=== PATIENT | female | born 1945 | race Caucasian/White ===

== ENCOUNTER 2019-08-31 12:36 | Emergency (ER) | payer MEDICARE, BC ==
[2019-08-31 12:58] VITALS: BP 140/91; PULSE 77
[2019-08-31] MEDS ORDERED: Lidocaine 1% 10 ML MDV INJECT ONE (12:58)
--- NOTE | 2019-08-31 13:01 | EDM.PDOC ---
ED HPI GENERAL MEDICAL PROBLEM - General Chief Complaint: Laceration Stated Complaint: EYEBROW LAC Time Seen by Provider: 08/31/19 12:46 Source of Information: Reports: Patient History Limitations: Reports: No Limitations - History of Present Illness INITIAL COMMENTS - FREE TEXT/NARRATIVE: Patient is a 73-year-old female who presents with complaints of a laceration above her left eyebrow. She states that she tripped over her "blind dog "in the garage and fell and hit her head on the floor. She denies loss of consciousness, but states that she did feel dizzy afterward. She now has a frontal headache. There is no active bleeding to the area. Denies any previous head injuries. Left Pain Score (Numeric/FACES): 8 - Related Data Allergies Allergy/AdvReac Type Severity Reaction Status Date / Time Fish Containing Products Allergy Anaphylactic Verified 06/09/18 14:07 Shock Penicillins Allergy Anaphylactic Verified 06/09/18 14:07 Shock alcohol AdvReac Vomiting Verified 06/09/18 14:07 codeine AdvReac Vomiting Verified 06/09/18 14:07 morphine AdvReac Vomiting Verified 06/09/18 14:07 Home Meds: Home Meds Lisinopril [Zestril] 10 mg PO DAILY 01/03/15 [History] Albuterol [Proventil Neb Soln] 1 dose NEB QID PRN 06/09/18 [History] Albuterol [Ventolin HFA] 1 - 2 puff INH Q4H PRN 06/09/18 [History] Bismuth Subsalicylate [Bismuth] 262 mg PO QID 06/09/18 [History] Cholecalciferol (Vitamin D3) [Vitamin D3] 1,000 unit PO DAILY 06/09/18 [History] Fluticasone/Salmeterol [Advair 250-50] 1 puff INH BID 06/09/18 [History] Meloxicam [Mobic] 15 mg PO DAILY 06/09/18 [History] Multivitamin [Daily Wolf] 1 tab PO DAILY 06/09/18 [History] Naproxen Na-Diphenhydramin HCl [Aleve Pm Caplet] 1 tab PO BEDTIME 06/09/18 [ History] Omeprazole Magnesium [Prilosec Otc] 20 mg PO DAILY 06/09/18 [History] Oxybutynin 5 mg PO BID 06/09/18 [History] amLODIPine Besylate [Norvasc] 5 mg PO DAILY 06/09/18 [History] atorvaSTATin [Lipitor] 40 mg PO DAILY 06/09/18 [History] Aspirin [Halfprin] 81 mg PO DAILY 08/31/19 [History] Past Medical History HEENT History: Reports: Cataract, Impaired Vision, Other (See Below) Other HEENT History: wears glasses, has dentures Cardiovascular History: Reports: Hypertension, Other (See Below) Other Cardiovascular History: aortic stenosis, hemispheric carotid artery syndrome, ASHD Respiratory History: Reports: Asthma Gastrointestinal History: Reports: GERD, Helicobacter Pylori, Other (See Below) Other Gastrointestinal History: incisional hernia, stomach pain Genitourinary History: Reports: Renal Calculus, Other (See Below) Other Genitourinary History: left breast mass, left adrenal mass PROFESSIONAL ADVISOR History: Reports: None Musculoskeletal History: Reports: Osteoporosis, Other (See Below) Other Musculoskeletal History: fall, left shoulder pain Neurological History: Reports: Headaches, Chronic, Other (See Below) Other Neuro History: dizziness, cerebrovascular small vessel disease Psychiatric History: Reports: Anxiety Endocrine/Metabolic History: Reports: Obesity/BMI 30+ Hematologic History: Reports: None Immunologic History: Reports: None Oncologic (Cancer) History: Reports: None Dermatologic History: Reports: Other (See Below) Other Dermatologic History: ingrown toenail - Past Surgical History Head Surgeries/Procedures: Reports: None HEENT Surgical History: Reports: Cataract Surgery Cardiovascular Surgical History: Reports: None Respiratory Surgical History: Reports: None GI Surgical History: Reports: Appendectomy, Cholecystectomy, Colonoscopy Female Surgical History: Reports: Hysterectomy Endocrine Surgical History: Reports: None Neurological Surgical History: Reports: None Musculoskeletal Surgical History: Reports: Other (See Below) Other Musculoskeletal Surgeries/Procedures:: carpal tunnel release, bilateral total knee replacements, bunionectomy, right rotator cuff repair Oncologic Surgical History: Reports: None Dermatological Surgical History: Reports: None Social & Family History - Tobacco Use Smoking Status *Q: Current Every Day Smoker Years of Tobacco use: 16 Packs/Tins Daily: 0.4 - Caffeine Use Caffeine Use: Reports: Coffee - Recreational Drug Use Recreational Drug Use: No ED ROS GENERAL - Review of Systems Review Of Systems: See Below Constitutional: Reports: No Symptoms HEENT: Reports: No Symptoms Respiratory: Reports: No Symptoms Cardiovascular: Reports: No Symptoms Endocrine: Reports: No Symptoms GI/Abdominal: Reports: No Symptoms : Reports: No Symptoms Musculoskeletal: Reports: No Symptoms Skin: Reports: Other (Laceration above the left eyebrow) Neurological: Reports: Headache Psychiatric: Reports: No Symptoms Hematologic/Lymphatic: Reports: No Symptoms Immunologic: Reports: No Symptoms ED EXAM, SKIN/RASH Exam: See Below Exam Limited By: No Limitations General Appearance: Alert, WD/WN, No Apparent Distress Eye Exam: Bilateral Eye: PERRL Respiratory/Chest: No Respiratory Distress, Lungs Clear, Normal Breath Sounds, No Accessory Muscle Use, Chest Non-Tender Cardiovascular: Normal Peripheral Pulses, Regular Rate, Rhythm, No Edema, No Murmur Neurological: Alert, Oriented, Normal Cognition, No Motor/Sensory Deficits Psychiatric: Normal Affect, Normal Mood Skin: Warm, Dry, Normal Color, No Rash, Other (3 cm laceration above the left eyebrow. Scant bleeding.) ED SKIN PROCEDURES - Laceration/Wound Repair left eyebrow Appearance: Subcutaneous Distal NVT: Neuro & Vascular Intact Anesthetic Type: Local Local Anesthesia - Lidocaine (Xylocaine): 1% Plain Local Anesthetic Volume: 2cc Skin Prep: Chlorhexidine (Hibiciens), Providone-Iodine (Betadine) Exploration/Debridement/Repair: Wound Explored, In a Bloodless Field Closed with: Sutures Lac/Wound length In cm: 3 Suture Size: 6-0 # of Sutures: 7 Suture Type: Nylon Tetanus Status Addressed: Yes (ordered) Complications: No Course - Vital Signs Last Recorded V/S: Last Vital Signs Temp 98.0 F 08/31/19 12:56 Pulse 77 08/31/19 12:56 Resp 20 08/31/19 12:56 BP 140/91 H 08/31/19 12:56 Pulse Ox 94 L 08/31/19 12:56 - Orders/Labs/Meds Orders: Active Orders 24 hr Category Date Time Status Procedure Tray at Bedside [RC] ASDIRECTED Care 08/31/19 13:10 Active Vaccines to be Administered [RC] PER UNIT ROUTINE Care 08/31/19 13:45 Active Meds: Medications Discontinued Medications Generic Name Dose Route Start Last Admin Trade Name Freq PRN Reason Stop Dose Admin Diphtheria/Tetanus/Acell Pertussis 0.5 ml 08/31/19 13:45 08/31/19 14:09 Adacel IM 08/31/19 13:46 0.5 ml .ONCE ONE Administration Lidocaine HCl 10 ml 08/31/19 12:58 08/31/19 14:08 Xylocaine 1% INJECT 08/31/19 12:59 10 ml ONETIME ONE Administration - Re-Assessments/Exams Free Text/Narrative Re-Assessment/Exam: Patient has a 3 cm laceration to her left eyebrow. She did hit her head on the garage floor and has some dizziness and headache post injury. Patient is on aspirin daily. I have ordered a head CT. Will then closed laceration with sutures. She is unsure of when her last tetanus vaccination was, so we will update that today as well. Analgesics were offered for her headache and she declined. 08/31/19 14:[address] was normal. Patient will be discharged home. Discharge instructions as noted. Departure - Departure Time of Disposition: 14:16 Disposition: Home, Self-Care 01 Condition: Fair Clinical Impression: Laceration - Discharge Information *PRESCRIPTION DRUG MONITORING PROGRAM REVIEWED*: No *COPY OF PRESCRIPTION DRUG MONITORING REPORT IN PATIENT RICHARD: No Instructions: Laceration Care, Adult, [id number] Referrals: Jeronimo Briseno Jr, MD [Primary Care Provider] - Forms: ED Department Discharge Additional Instructions: You were seen in the emergency department for a 3 cm laceration to your left eyebrow. The wound was cleansed and closed with 7 sutures. The sutures should stay intact for 5 days. After that time they may be removed at either the [facility] or the [facility]. The wound should be kept clean and dry. Wash with regular soap and water twice daily and then pat dry. If there is a chance that the wound may become contaminated, cover it with a Band-Aid. Otherwise it may be left open to air. Watch for signs of infection including redness, swelling, or purulent drainage. If these should occur please follow-up with your primary care provider or return to the emergency department. Sepsis Event Note - Evaluation Sepsis Screening Result: No Definite Risk - Focused Exam Vital Signs: Vital Signs Temp Pulse Resp BP Pulse Ox 08/31/19 12:56 98.0 F 77 20 140/91 H 94 L Date Exam was Performed: 08/31/19 Time Exam was Performed: 17:58 - My Orders Last 24 Hours: My Active Orders 08/31/19 13:10 Procedure Tray at Bedside [RC] ASDIRECTED 08/31/19 13:45 Vaccines to be Administered [RC] PER UNIT ROUTINE - Assessment/Plan Last 24 Hours: My Active Orders 08/31/19 13:10 Procedure Tray at Bedside [RC] ASDIRECTED 08/31/19 13:45 Vaccines to be Administered [RC] PER UNIT ROUTINE
[2019-08-31] MEDS ORDERED: Diphtheria,Pertussis(Acell),Tetanus Vaccine 0.5 ML Syringe IM ONE (13:45)
--- NOTE | 2019-08-31 14:15 | CT ---
Head CT Technique: Multiple axial sections through the brain were obtained. Intravenous contrast was not utilized. Comparison: Prior head CT study of 02/24/11. Findings: Ventricles along with basal cisterns and sulci over the convexities are mildly prominent. Diffuse diminished density is noted within the periventricular and subcortical white matter compatible with small vessel ischemic demyelination change. No other abnormal parenchymal densities are seen. No evidence of intracranial hemorrhage. No midline shift or mass effect is seen. Bone window settings were reviewed. No acute mastoid sinus findings are seen. No acute paranasal sinus findings are seen. No acute calvarial abnormality is appreciated. Impression: 1. Senescent change as noted above. 2. Nothing acute is appreciated on noncontrast head CT exam. Diagnostic code #1 This report was dictated in [place] Standard Time
== END 2019-08-31 14:23 | disposition home or self-care (01) ==
LOC: JD.ED 12:36
DX: S01.112A Laceration without foreign body of left eyelid and periocular area, initial encounter (principal); I10 Essential (primary) hypertension; J45.909 Unspecified asthma, uncomplicated; K21.9 Gastro-esophageal reflux disease without esophagitis; E66.9 Obesity, unspecified; F17.210 Nicotine dependence, cigarettes, uncomplicated; Z23 Encounter for immunization; Z88.0 Allergy status to penicillin; Z91.013 Allergy to seafood; Z91.048 Other nonmedicinal substance allergy status; Z79.899 Other long term (current) drug therapy; Z79.51 Long term (current) use of inhaled steroids; Z79.82 Long term (current) use of aspirin; Z68.32 Body mass index [BMI] 32.0-32.9, adult; W01.198A Fall on same level from slipping, tripping and stumbling with subsequent striking against other object, initial encounter; Y92.59 Other trade areas as the place of occurrence of the external cause
CPT/HCPCS: 12013; 70450; 90471; 90715; 99283; J2001; 99282

== ENCOUNTER 2021-06-06 20:06 | Emergency (ER) | payer MEDICARE, BC ==
[2021-06-06] MEDS ORDERED: Sodium Chloride 0.9% 10 ML Syringe FLUSH PRN (20:22)
[2021-06-06] MEDS ORDERED: Ondansetron 4 MG/2 ML SDV IVPUSH PRN (20:22)
[2021-06-06 20:29] VITALS: BP 163/76; PULSE 85
--- NOTE | 2021-06-06 21:08 | CT ---
Head CT Technique: Multiple axial sections were obtained through the brain. Intravenous contrast was not utilized. Reconstructed coronal and sagittal images were obtained. Comparison: Prior head CT study of 08/31/19. Findings: Ventricles along with basal cisterns and sulci over the convexities are mildly prominent. Diminished density is noted within the periventricular and subcortical white matter which is compatible with stable small vessel ischemic demyelination change. No other abnormal parenchymal densities are seen. No evidence of intracranial hemorrhage is seen. No midline shift or mass-effect is seen. Bone window settings were reviewed. Mucosal thickening is noted within the ethmoid and frontal sinuses. Mastoid sinuses show nothing acute. There is mild atherosclerotic change within the carotid siphon. No acute calvarial abnormality is seen. Soft tissue injury is noted within the posterior left frontal scalp. Impression: 1. Soft tissue injury within the scalp. 2. Mild mucosal thickening within the ethmoid sinuses and frontal sinus. 3. Senescent change as noted above. No acute intracranial abnormality is appreciated. Diagnostic code #3
[2021-06-06] MEDS ORDERED: HYDROmorphone 0.5 MG/0.5 ML Syringe IVPUSH ONE ×2 (21:16→23:19)
--- NOTE | 2021-06-06 21:25 | CT ---
CT cervical spine Technique: Multiple axial sections were obtained from above the C1 inferiorly through the upper T4 level. Reconstructed coronal and sagittal images were obtained. Comparison: No prior cervical spine imaging is available. Findings: Multiple bony densities are seen around the anterior C1 arch. These are felt to be due to degenerative change. Joint space narrowing is also noted at C1-2. Mild degenerative change is also noted between C1 and the occipital condyles. Moderate disc space is narrowing is seen at C4-5 as well as moderate to severe disc space narrowing at C5-6. Moderate disc space narrowing is noted at C6-7 and mild disc space narrowing at C7-T1. Moderate disc space narrowing is noted T2-3 and T3-4. Scattered degenerative apophyseal change is noted. Bone island is noted within the C2 level on the right side. C3-4: Moderate bilateral neural foraminal stenosis is noted. Diffuse posterior disc bulge is seen with mild calcification. C4-5: Moderate bilateral neural foraminal stenosis is noted. Diffuse posterior disc bulge is seen. C5-6: Mild right-sided neural foraminal stenosis is noted. Mild diffuse posterior disc bulge is noted. C6-7: Neural foramina are patent. Diffuse posterior disc bulge is noted. C7-T1: No neural foraminal stenosis is seen. Other levels show no evidence of neural foraminal stenosis. No acute fracture is seen. No abnormal subluxation is seen. Visualized lung bases show nothing acute. Impression: 1. Degenerative change as noted above. 2. No acute fracture or subluxation is seen. Diagnostic code #2
[2021-06-06] MEDS ORDERED: Lidocaine 1% with EPINEPHrine 1:100,000 20 ML MDV INJECT ONE (22:29)
[2021-06-06] MEDS ORDERED: Lidocaine 1% with EPINEPHrine 1:100,000 10 ML MDV ONE (22:34)
[2021-06-06] MEDS ORDERED: Lidocaine 1% with EPINEPHrine 1:100,000 10 ML MDV INJECT ONE ×2 (22:43→22:44)
[2021-06-06] MEDS ORDERED: Acetaminophen 325 MG Tab PO ONE (23:55)
--- NOTE | 2021-06-06 23:58 | EDM.PDOC ---
ED HPI GENERAL MEDICAL PROBLEM - General Chief Complaint: Laceration Stated Complaint: [facility] Time Seen by Provider: 06/06/21 20:17 Source of Information: Reports: Patient, EMS, RN Notes Reviewed - History of Present Illness INITIAL COMMENTS - FREE TEXT/NARRATIVE: 75 yr old female tripped going down some steps. She fell headfirst striking her L forehead and head against some "wooden pallets. She was dazed briefly, no LOC. She has moderate Sawant, feels nauseated, has neck and R knee pain. No chest pain or difficulty breathing. Is reported to be on a "blood thinner" but does not know what that is. This was called a trauma alert based on fall, head injury on blood thinner. Treatments [employer]IVER: Reports: Dressing(s) Left Forehead Pain Score (Numeric/FACES): 10 - Related Data Allergies Allergy/AdvReac Type Severity Reaction Status Date / Time Fish Containing Products Allergy Anaphylactic Verified 06/06/21 20:29 Shock Penicillins Allergy Anaphylactic Verified 06/06/21 20:29 Shock alcohol AdvReac Vomiting Verified 06/06/21 20:29 codeine AdvReac Vomiting Verified 06/06/21 20:29 morphine AdvReac Vomiting Verified 06/06/21 20:29 Home Meds: Home Meds lisinopriL [Zestril] 10 mg PO DAILY 01/03/15 [History] Albuterol [Proventil Neb Soln] 1 dose NEB QID PRN 06/09/18 [History] Albuterol [Ventolin HFA] 1 - 2 puff INH Q4H PRN 06/09/18 [History] Bismuth Subsalicylate [Bismuth] 262 mg PO QID 06/09/18 [History] Cholecalciferol (Vitamin D3) [Vitamin D3] 1,000 unit PO DAILY 06/09/18 [History] Fluticasone/Salmeterol [Advair 250-50] 1 puff INH BID 06/09/18 [History] Meloxicam [Mobic] 15 mg PO DAILY 06/09/18 [History] Multivitamin [Daily Wolf] 1 tab PO DAILY 06/09/18 [History] Naproxen Sod/Diphenhydramine [Aleve Pm Caplet] 1 tab PO BEDTIME 06/09/18 [History] Omeprazole Magnesium [Prilosec Otc] 20 mg PO DAILY 06/09/18 [History] Oxybutynin 5 mg PO BID 06/09/18 [History] amLODIPine Besylate [Norvasc] 5 mg PO DAILY 06/09/18 [History] atorvaSTATin [Lipitor] 40 mg PO DAILY 06/09/18 [History] Aspirin [Halfprin] 81 mg PO DAILY 08/31/19 [History] Hydrocodone/Acetaminophen [HYDROcodone-Acetaminophen 5-325 MG] 1 each PO Q6HR PRN #14 tab 06/06/21 [Rx] Ondansetron [Zofran ODT] 4 mg PO Q8HR PRN #7 tab.dis 06/06/21 [Rx] Past Medical History HEENT History: Reports: Cataract, Impaired Vision, Other (See Below) Other HEENT History: wears glasses, has dentures Cardiovascular History: Reports: Hypertension, Other (See Below) Other Cardiovascular History: aortic stenosis, hemispheric carotid artery syndrome, ASHD Respiratory History: Reports: Asthma Gastrointestinal History: Reports: GERD, Helicobacter Pylori, Other (See Below) Other Gastrointestinal History: incisional hernia, stomach pain Genitourinary History: Reports: Renal Calculus, Other (See Below) Other Genitourinary History: left breast mass, left adrenal mass [employer] 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 Musculoskeletal History: Reports: Osteoporosis, Other (See Below) Other Musculoskeletal History: fall, left shoulder pain Neurological History: Reports: Headaches, Chronic, Other (See Below) Other Neuro History: dizziness, cerebrovascular small vessel disease Psychiatric History: Reports: Anxiety Endocrine/Metabolic History: Reports: Obesity/BMI 30+ Hematologic History: Reports: None Immunologic History: Reports: None Oncologic (Cancer) History: Reports: None Dermatologic History: Reports: Other (See Below) Other Dermatologic History: ingrown toenail - Past Surgical History Head Surgeries/Procedures: Reports: None HEENT Surgical History: Reports: Cataract Surgery Cardiovascular Surgical History: Reports: None Respiratory Surgical History: Reports: None GI Surgical History: Reports: Appendectomy, Cholecystectomy, Colonoscopy Female Surgical History: Reports: Hysterectomy Endocrine Surgical History: Reports: None Neurological Surgical History: Reports: None Musculoskeletal Surgical History: Reports: Other (See Below) Other Musculoskeletal Surgeries/Procedures:: carpal tunnel release, bilateral total knee replacements, bunionectomy, right rotator cuff repair Oncologic Surgical History: Reports: None Dermatological Surgical History: Reports: None Social & Family History - Tobacco Use Tobacco Use Status *Q: Current Every Day Tobacco User Years of Tobacco use: 61 Packs/Tins Daily: 1 - Caffeine Use Caffeine Use: Reports: Coffee - Recreational Drug Use Recreational Drug Use: No ED ROS GENERAL - Review of Systems Review Of Systems: See Below Constitutional: Reports: No Symptoms HEENT: Reports: Other (forehead and scalp contussion and lac) Respiratory: Denies: Shortness of Breath, Pleuritic Chest Pain Cardiovascular: Denies: Chest Pain GI/Abdominal: Reports: Nausea. Denies: Abdominal Pain, Vomiting Musculoskeletal: Reports: Neck Pain, Joint Pain (R knee). Denies: Shoulder Pain, Arm Pain Neurological: Reports: Dizziness, Headache. Denies: Numbness, Tingling, Trouble Speaking ED EXAM, SKIN/RASH Exam: See Below General Appearance: Alert, Moderate Distress Eye Exam: Bilateral Eye: PERRL Ears: Normal External Exam Throat/Mouth: Normal Inspection Head: Other (large 13 cm Lac L forehead and scalp that extends from L eyebrow clear back to L mid superior scalp, deep, gaping) Neck: Tender Midline Respiratory/Chest: No Respiratory Distress, Lungs Clear, Normal Breath Sounds, Chest Non-Tender Cardiovascular: Regular Rate, Rhythm GI/Abdominal: Soft, Non-Tender. No: Guarding Back Exam: No: Vertebral Tenderness Extremities: Other (mild swelling and moderate tenderness R ant. knee) Neurological: Alert, Oriented, No Motor/Sensory Deficits Skin: Dry, Normal Color ED SKIN PROCEDURES - Laceration/Wound Repair Left Forehead Appearance: Linear, Irregular, Other (moderately deep, gaping) Distal NVT: Neuro & Vascular Intact Anesthetic Type: Local Local Anesthesia - Lidocaine (Xylocaine): 1% with EPI Skin Prep: Saline Closed with: Sutures Lac/Wound length In cm: 13 Suture Size: 3-0 Suture Type: Nylon Suture Size: 4-0 # of Sutures: 10 Repaired with: Vicryl Course - Vital Signs Last Recorded V/S: Last Vital Signs Temp 96.6 F L 06/06/21 20:21 Pulse 85 06/06/21 20:21 Resp 16 06/06/21 20:21 BP 163/76 H 06/06/21 20:21 Pulse Ox 95 06/06/21 20:21 - Orders/Labs/Meds Orders: Active Orders 24 hr Category Date Time Status Knee Min 4V Rt [CR] Stat Exams 06/06/21 23:32 Taken Peripheral IV Insertion Adult [OM.PC] Stat Oth 06/06/21 20:22 Ordered Labs: Laboratory Tests 06/06/21 06/06/21 06/06/21 Range/Units 20:25 20:25 20:25 WBC 12.82 H (3.98-10.04) K/mm3 RBC 5.57 H (3.98-5.22) M/mm3 Hgb 16.2 H (11.2-15.7) gm/dl Hct 48.9 H (34.1-44.9) % MCV 87.8 (79.4-94.8) fl MCH 29.1 (25.6-32.2) pg MCHC 33.1 (32.2-35.5) g/dl RDW Std Deviation 50.3 H (36.4-46.3) fL Plt Count 357 (182-369) K/mm3 MPV 9.5 (9.4-12.3) fl Neut % (Auto) 57.0 (34.0-71.1) % Lymph % (Auto) 28.3 (19.3-51.7) % Thayer % (Auto) 8.0 (4.7-12.5) % Eos % (Auto) 6.0 H (0.7-5.8) Baso % (Auto) 0.3 (0.1-1.2) % Neut # (Auto) 7.30 H (1.56-6.13) K/mm3 Lymph # (Auto) 3.63 (1.18-3.74) K/mm3 Thayer # (Auto) 1.03 H (0.24-0.36) K/mm3 Eos # (Auto) 0.77 H (0.04-0.36) K/mm3 Baso # (Auto) 0.04 (0.01-0.08) K/mm3 PT 9.7 (9.7-12.0) SECONDS INR < 0.93 Sodium 140 (136-145) mEq/L Potassium 3.5 (3.5-5.1) mEq/L Chloride 104 (98-107) mEq/L Carbon Dioxide 26 (21-32) mEq/L Anion Gap 13.5 (5-15) BUN 12 (7-18) mg/dL Creatinine 0.8 (0.55-1.02) mg/dL Est Cr Clr Drug Dosing 42.30 mL/min Estimated GFR (MDRD) > 60 (>60) mL/min BUN/Creatinine Ratio 15.0 (14-18) Glucose 163 H (70-99) mg/dL Calcium 9.0 (8.5-10.1) mg/dL Total Bilirubin 0.4 (0.2-1.0) mg/dL AST 23 (15-37) U/L ALT 24 (14-59) U/L Alkaline Phosphatase 91 (46-116) U/L Total Protein 7.7 (6.4-8.2) g/dl Albumin 4.2 (3.4-5.0) g/dl Globulin 3.5 gm/dL Albumin/Globulin Ratio 1.2 (1-2) Meds: Medications Discontinued Medications Generic Name Dose Route Start Last Admin Trade Name Freq PRN Reason Stop Dose Admin Acetaminophen 975 mg 06/06/21 23:55 06/07/21 00:06 Acetaminophen 325 Mg Tab PO 06/06/21 23:56 975 mg NOW ONE Administration Hydromorphone HCl 0.5 mg 06/06/21 21:16 06/06/21 21:36 Hydromorphone 0.5 Mg/0.5 Ml Syringe IVPUSH 06/06/21 21:17 0.5 mg ONETIME ONE Administration Hydromorphone HCl 0.25 mg 06/06/21 23:19 06/06/21 23:39 Hydromorphone 0.5 Mg/0.5 Ml Syringe IVPUSH 06/06/21 23:20 0.25 mg ONETIME ONE Administration Lidocaine/Epinephrine 20 ml 06/06/21 22:29 06/06/21 22:43 Lidocaine 1% With Epinephrine 1:100,000 20 Ml Mdv INJECT 06/06/21 22:30 Not Given ONETIME ONE Lidocaine/Epinephrine Confirm 06/06/21 22:34 06/06/21 22:44 Lidocaine 1% With Epinephrine 1:100,000 10 Ml Mdv Administered 06/06/21 22:35 Not Given Dose 10 ml .ROUTE .STK-MED ONE Lidocaine/Epinephrine 10 ml 06/06/21 22:43 06/06/21 22:45 Lidocaine 1% With Epinephrine 1:100,000 10 Ml Mdv INJECT 06/06/21 22:44 10 ml ONETIME ONE Administration Lidocaine/Epinephrine 10 ml 06/06/21 22:44 06/06/21 22:45 Lidocaine 1% With Epinephrine 1:100,000 10 Ml Mdv INJECT 06/06/21 22:45 10 ml ONETIME ONE Administration Ondansetron HCl 4 mg 06/06/21 20:22 06/06/21 20:36 Ondansetron 4 Mg/2 Ml Sdv IVPUSH 4 mg Q8H PRN Administration Nausea Sodium Chloride 10 ml 06/06/21 20:22 06/06/21 20:35 Sodium Chloride 0.9% 10 Ml Syringe FLUSH 10 ml ASDIRECTED PRN Administration Keep Vein Open - Re-Assessments/Exams Free Text/Narrative Re-Assessment/Exam: 06/07/21 00:[address], no acute findings, CT of C spine degenerative changes, no fx. Pt did feel better after IV zofran and dilaudid. Did follow that up with tylenol at time of discharge. Departure - Departure Time of Disposition: 00:20 Disposition: Home, Self-Care 01 Condition: Fair Clinical Impression: Fall Qualifiers: Encounter type: initial encounter Qualified Code(s): W19.XXXA - Unspecified fall, initial encounter Forehead laceration Qualifiers: Encounter type: initial encounter Qualified Code(s): S01.81XA - Laceration without foreign body of other part of head, initial encounter Scalp laceration Qualifiers: Encounter type: initial encounter Qualified Code(s): S01.01XA - Laceration without foreign body of scalp, initial encounter Head concussion Qualifiers: Encounter type: initial encounter Loss of consciousness presence/duration: without LOC Qualified Code(s): S06.0X0A - Concussion without loss of consciousness, initial encounter Acute neck sprain Qualifiers: Encounter type: initial encounter Qualified Code(s): S13.9XXA - Sprain of joints and ligaments of unspecified parts of neck, initial encounter Knee contusion Qualifiers: Encounter type: initial encounter - Discharge Information Prescriptions: Hydrocodone/Acetaminophen [HYDROcodone-Acetaminophen 5-325 MG] 1 each PO Q6HR PRN #14 tab PRN Reason: Pain Ondansetron [Zofran ODT] 4 mg PO Q8HR PRN #7 tab.dis PRN Reason: Nausea/Vomiting Instructions: Concussion, Adult, [id number], Head Injury, Adult, [id number], Laceration Care, Adult, [id number] Referrals: PCP,None [Primary Care Provider] - Forms: ED Department Discharge Additional Instructions: Laceration care instructions. Keep pressure dressing on until Wednesday. Rest with head and face elevated above chest as much as possible. Move slowly and carefully as tolerated. Zofran 4 mg ODT q 8 hr if needed for any further nausea or vomiting. Tylenol for mild to moderate headache. 1/2 tablet hydrocodone along with 500 mg tylenol q 6 to 8 hr if needed for more severe headache. Stitches out in 12 days. they can be taken out at the clinic. Return to ED as needed. Sepsis Event Note (ED) - Evaluation Sepsis Screening Result: No Definite Risk - Focused Exam Vital Signs: Vital Signs Temp Pulse Resp BP Pulse Ox 06/06/21 20:21 96.6 F L 85 16 163/76 H 95 - My Orders Last 24 Hours: My Active Orders 06/06/21 20:22 Peripheral IV Insertion Adult [OM.PC] Stat 06/06/21 23:32 Knee Min 4V Rt [CR] Stat - Assessment/Plan Last 24 Hours: My Active Orders 06/06/21 20:22 Peripheral IV Insertion Adult [OM.PC] Stat 06/06/21 23:32 Knee Min 4V Rt [CR] Stat
--- NOTE | 2021-06-07 06:45 | CR ---
Right knee: 4 views of the right knee were obtained. Comparison: Prior right femur study of 10/25/12 partially showing the right knee. Knee prosthesis is noted. Components are aligned. No joint effusion is seen. No acute fracture or other bony abnormality is appreciated. Impression: 1. Stable right knee prosthesis. 2. Nothing acute is appreciated on right knee study. Diagnostic code #2
== END 2021-06-07 00:25 | disposition home or self-care (01) ==
LOC: JD.ED 20:06
DX: S06.0X0A Concussion without loss of consciousness, initial encounter (principal); S01.01XA Laceration without foreign body of scalp, initial encounter; S01.81XA Laceration without foreign body of other part of head, initial encounter; S13.9XXA Sprain of joints and ligaments of unspecified parts of neck, initial encounter; S80.01XA Contusion of right knee, initial encounter; I10 Essential (primary) hypertension; J45.909 Unspecified asthma, uncomplicated; K21.9 Gastro-esophageal reflux disease without esophagitis; E66.9 Obesity, unspecified; Z68.33 Body mass index [BMI] 33.0-33.9, adult; Z72.0 Tobacco use; Z91.013 Allergy to seafood; Z88.0 Allergy status to penicillin; Z88.5 Allergy status to narcotic agent; Z88.8 Allergy status to other drugs, medicaments and biological substances; Z79.82 Long term (current) use of aspirin; Z79.899 Other long term (current) drug therapy; W10.9XXA Fall (on) (from) unspecified stairs and steps, initial encounter
CPT/HCPCS: 12016; 36415; 70450; 72125; 73564; 80053; 85025; 85610; 96374; 96375; 96376; 99284; A9270; J1170; J2405

== ENCOUNTER 2021-10-29 07:26 | Day surgery (SDC) | payer MEDICARE, OTHER ==
[~2021-10-29 07:26] MED LIST: Albuterol 0.083% 2.5 MG/3 ML Neb Soln NEB ONE; Lactated Ringers 1,000 ML IV SCH; Lidocaine 1%/Sod Bicarbonate in NS 8.4% 1 ML Syringe IDERM PRN; Sodium Chloride 0.9% 10 ML Syringe FLUSH PRN; Sodium Chloride 0.9% 10 ML Syringe FLUSH SCH
[2021-10-29] MEDS ORDERED: Propofol 200 MG/20 ML SDV ONE (07:32)
[2021-10-29] MEDS ORDERED: fentaNYL 100 MCG/2 ML SDV ONE (07:32)
[2021-10-29] MEDS ORDERED: Lidocaine 1% 4 ML ONE (07:35)
[2021-10-29] MEDS ORDERED: ePHEDrine 50 MG/ML SDV ONE (08:39)
[2021-10-29 09:20] VITALS: BP 107/63
[2021-10-29 13:06] VITALS: PULSE 80
== END 2021-10-29 10:00 | disposition home or self-care (01) ==
LOC: JD.SDS 07:26
PROVIDERS: ATTEND Surgery
DX: K52.831 Collagenous colitis (principal); K29.50 Unspecified chronic gastritis without bleeding; K31.89 Other diseases of stomach and duodenum; K31.A0 Gastric intestinal metaplasia, unspecified; K29.80 Duodenitis without bleeding; K20.90 Esophagitis, unspecified without bleeding; K22.89 Other specified disease of esophagus; K57.30 Diverticulosis of large intestine without perforation or abscess without bleeding; K64.9 Unspecified hemorrhoids; M81.0 Age-related osteoporosis without current pathological fracture; E78.5 Hyperlipidemia, unspecified; I10 Essential (primary) hypertension; F17.210 Nicotine dependence, cigarettes, uncomplicated; I25.10 Atherosclerotic heart disease of native coronary artery without angina pectoris; J44.9 Chronic obstructive pulmonary disease, unspecified; Z98.0 Intestinal bypass and anastomosis status; Z90.49 Acquired absence of other specified parts of digestive tract; Z98.890 Other specified postprocedural states; Z79.899 Other long term (current) drug therapy; Z88.0 Allergy status to penicillin; Z88.5 Allergy status to narcotic agent; Z91.013 Allergy to seafood; Z88.7 Allergy status to serum and vaccine
CPT/HCPCS: 43239; 45380; 88305; 88342; J2704; J3010; J7120; 00813

== ENCOUNTER 2023-06-28 08:23 | Day surgery (SDC) | payer MEDICARE, OTHER ==
[~2023-06-28 08:23] MED LIST changes: -Albuterol 0.083% 2.5 MG/3 ML Neb Soln NEB ONE; -Lidocaine 1%/Sod Bicarbonate in NS 8.4% 1 ML Syringe IDERM PRN
[2023-06-28] MEDS ORDERED: Dexamethasone 4 MG/ML 5 ML MDV ONE (08:25)
[2023-06-28] MEDS ORDERED: Dexmedetomidine 200 MCG/2 ML SDV ONE (08:25)
[2023-06-28] MEDS ORDERED: fentaNYL 100 MCG/2 ML SDV ONE ×2 (08:25→11:57)
[2023-06-28] MEDS ORDERED: Midazolam 1 MG/ML 2 ML SDV ONE (08:25)
[2023-06-28] MEDS ORDERED: EPINEPHrine 1 MG/ML SDV ONE (08:25)
[2023-06-28] MEDS ORDERED: Ropivacaine 0.5% 5 MG/ML 30 ML SDV ONE (08:34)
[2023-06-28 09:14] LABS: INR 0.95; PROTHROMBIN TIME 10.2 SECONDS (9.7-12.0)
[2023-06-28 09:15] LABS: PTT,PARTIAL THROMBOPLSTIN TIME 26.8 SECONDS (21.7-31.4)
[2023-06-28] MEDS ORDERED: Tranexamic Acid 1,000 MG/10 ML Vial ONE (09:56)
[2023-06-28] MEDS ORDERED: Vancomycin 1 GM SDV ONE (09:56)
[2023-06-28] MEDS ORDERED: Propofol 200 MG/20 ML SDV ONE ×2 (11:17→12:12)
[2023-06-28] MEDS ORDERED: Ketamine 500 mg/10 ML MDV ONE (11:29)
[2023-06-28] MEDS ORDERED: Lidocaine 1% 2 ML ONE (11:32)
[2023-06-28] MEDS ORDERED: ceFAZolin 2 GM Vial ONE (11:50)
[2023-06-28] MEDS ORDERED: Ondansetron 4 MG/2 ML SDV ONE (12:02)
[2023-06-29 08:02] VITALS: BP 149/76; PULSE 57
== END 2023-06-28 15:12 | disposition home or self-care (01) ==
LOC: JD.SDS 08:23
PROVIDERS: ATTEND Orthopaedic Surgery
DX: M75.101 Unspecified rotator cuff tear or rupture of right shoulder, not specified as traumatic (principal); I10 Essential (primary) hypertension; J44.9 Chronic obstructive pulmonary disease, unspecified; Z79.82 Long term (current) use of aspirin; Z79.899 Other long term (current) drug therapy
CPT/HCPCS: 0055T; 23472; 36415; 76000; 85610; 85730; 97110; 97161; C1713; C1769; C1776; J0171; J0690; J1100; J2250; J2405; J2704; J2795; J3010; J3370; J3490; J7030; J7120; 01638; 64415; 99100

== ENCOUNTER 2025-04-24 10:08 | Emergency (ER) | payer MEDICARE, OTHER ==
[2025-04-24] MEDS ORDERED: Sodium Chloride 0.9% 10 ML Syringe FLUSH PRN (10:27)
[2025-04-24] MEDS: Iopamidol 755 Mg/ML 100 ML Bottle IVPUSH ONE (10:43)
[2025-04-24 10:47] LABS: BASOPHILS ABSOLUTE AUTO 0.1 K/mm3 (0.0-0.2); BASOPHILS PERCENT AUTO 0.5 % (0.0-1.0); EOSINOPHILS ABSOLUTE AUTO 0.2 K/mm3 (0.0-0.4); EOSINOPHILS PERCENT AUTO 1.5 % (0.0-6.0); IMMATURE GRAN ABSOLUTE AUTO 0.05 K/mm3 (0.00-0.05); IMMATURE GRAN PERCENT AUTO 0.4 % (0.0-0.4); LYMPHOCYTES ABSOLUTE AUTO 2.4 K/mm3 (1.0-4.8); LYMPHOCYTES PERCENT AUTO 19.0 % (24.0-44.0); MEAN PLATELET VOLUME 9.1 fl (9.4-12.3); MONOCYTES ABSOLUTE AUTO 0.8 K/mm3 (0.0-0.8); MONOCYTES PERCENT AUTO 6.2 % (0.0-8.0); NEUTROPHILS ABSOLUTE AUTO 9.0 K/mm3 (1.8-7.7); NEUTROPHILS PERCENT AUTO 72.4 % (41.0-71.0); NRBC ABSOLUTE 0.00 (0.00-0.02); NRBC PERCENT 0.0 % (0.0-0.2); PLATELET COUNT,PLT 371 K/mm3 (150-400); RED BLOOD CELL COUNT 5.15 M/mm3 (4.10-5.30); WHITE BLOOD CELL COUNT,WBC 12.47 K/mm3 (3.9-11.3)
[2025-04-24 11:08] LABS: INR 0.98
[2025-04-24 11:09] LABS: PTT,PARTIAL THROMBOPLSTIN TIME 26.2 SECONDS (21.7-31.4)
[2025-04-24 11:31] LABS: A/G RATIO 1.0 (1-2); ALANINE AMINOTRANSFERASE,ALT 20.0 U/L (14-59); ASPARTATE AMNIOTRANSFERASE,AST 16.0 U/L (15-37); BILIRUBIN TOTAL 0.6 mg/dL (0.2-1.0); BLOOD UREA NITROGEN,BUN 17.0 mg/dL (7-18); CARBON DIOXIDE,CO2 25.0 mEq/L (21-32); CHLORIDE,CL 104.0 mEq/L (98-107); CREATININE 0.7 mg/dL (0.55-1.02); EST CRCL DRUG DOSING (CG) 45.27 mL/min; ESTIMATED GFR 87.0 mL/min (>60); GLUCOSE RANDOM 114.0 mg/dL (70-99); POTASSIUM,K 3.6 mEq/L (3.5-5.1); PROTEIN TOTAL,TP 6.5 g/dl (6.4-8.2); SODIUM,NA 140.0 mEq/L (136-145); TROPONIN I HIGH SENSITIVITY 24.0 pg/mL (<=51)
[2025-04-24 13:29] LABS: APPEARANCE,URINE CLEAR (Clear); GLUCOSE,URINE NEGATIVE (Negative); OCCULT BLOOD,URINE TRACE-INTACT (Negative)
[2025-04-24 13:58] LABS: EPITHELIAL CELLS,URINE 0-5 /hpf (0-5)
[2025-04-24 14:35] VITALS: BP 154/62; PULSE 57
== END 2025-04-24 14:26 | disposition home or self-care (01) ==
LOC: JD.ED 10:08
DX: E86.9 Volume depletion, unspecified (principal); R53.1 Weakness; R42 Dizziness and giddiness; I10 Essential (primary) hypertension; E78.00 Pure hypercholesterolemia, unspecified; J44.89 Other specified chronic obstructive pulmonary disease; K21.9 Gastro-esophageal reflux disease without esophagitis; E66.9 Obesity, unspecified; Z68.29 Body mass index [BMI] 29.0-29.9, adult; Z90.49 Acquired absence of other specified parts of digestive tract; Z90.710 Acquired absence of both cervix and uterus; Z88.5 Allergy status to narcotic agent; Z88.7 Allergy status to serum and vaccine; Z88.8 Allergy status to other drugs, medicaments and biological substances; Z91.013 Allergy to seafood; Z91.048 Other nonmedicinal substance allergy status; Z79.51 Long term (current) use of inhaled steroids; Z79.82 Long term (current) use of aspirin; Z79.899 Other long term (current) drug therapy
CPT/HCPCS: 36415; 70450; 70450-26; 70496; 70496-26; 70498; 70498-26; 80053; 81001; 82947; 83690; 83735; 84484; 85025; 85610; 85730; 93005; 99285; C1758; Q9967